=== PATIENT | male | born 1935 | race Caucasian/White ===

== ENCOUNTER → 2020-02-27 14:53 | Outpatient (BNVA) | payer MEDICARE, SELFPAY | PROVIDERS: PCP Internal Medicine; Referring Provider Internal Medicine; Visit Provider Surgery | DX: K40.90 Unilateral inguinal hernia, without obstruction or gangrene, not specified as recurrent (principal) | CPT/HCPCS: 99212 ==

== ENCOUNTER 2020-03-06 06:00 | Day surgery (SDC) | payer MEDICARE, SELFPAY ==
--- NOTE | 2020-03-05 13:58 | HO.ANESPROP2 ---
Documented by User: Beatriz Gates 03/05/20 13:59 HPI - Anesthesia Eval Consult details Narrative: 84yo M for Open Hernia Repair Inguinal with Mesh [facility] Past Medical History Medical History GERD (gastroesophageal reflux disease) Hypercholesterolemia Rheumatoid arthritis Surgical History Surgical History History of shoulder replacement (~12/2019) History of umbilical hernia repair Social History Social History Alcohol intake: current Alcohol intake frequency: holidays/special occasions only Smoking Status: Former smoker Second Hand Smoke Exposure: No Use of substances other than those prescribed or required for medical reasons: No Advance Directives: No Advance Directives Information Provided: No Advance Directives on File: No Meds Allergies Allergy/AdvReac Type Severity Reaction Status Date / Time No Known Allergies Allergy Verified 02/27/20 15:03 Home Medications Medication Instructions Recorded Confirmed Type B-complex with vitamin C 1 tab PO DAILY 02/27/20 02/27/20 History folic acid 1 mg tablet 1 mg PO DAILY 02/27/20 02/27/20 History methotrexate sodium 2.5 mg tablet mg PO 02/27/20 02/27/20 History omeprazole 20 mg capsule,delayed mg PO 02/27/20 02/27/20 History release pravastatin 40 mg tablet mg PO 02/27/20 02/27/20 History tamsulosin 0.4 mg capsule mg PO 02/27/20 02/27/20 History tramadol 50 mg tablet mg PO 02/27/20 02/27/20 History trazodone 50 mg tablet mg PO 02/27/20 02/27/20 History Exam Exam Date and Time: March 05, 2020 1358 Height,Weight and Vital Signs: Height 5 ft 6 in Weight 56.245 kg Assessment and Plan Assessment Anesthesia Assessment: Chart Reviewed Documented by User: Marilou Araya 03/06/20 07:16 PMFSH Past Medical History Medical History GERD (gastroesophageal reflux disease) Hypercholesterolemia Rheumatoid arthritis Surgical History Surgical History History of shoulder replacement (~12/2019) History of umbilical hernia repair Social History Social History Alcohol intake: current Alcohol intake frequency: holidays/special occasions only Smoking Status: Former smoker Second Hand Smoke Exposure: No Use of substances other than those prescribed or required for medical reasons: No Advance Directives: No Advance Directives Information Provided: No Advance Directives on File: No Meds Allergies Allergy/AdvReac Type Severity Reaction Status Date / Time No Known Allergies Allergy Verified 02/27/20 15:03 Home Medications Medication Instructions Recorded Confirmed Type B-complex with vitamin C 1 tab PO DAILY 02/27/20 02/27/20 History folic acid 1 mg tablet 1 mg PO DAILY 02/27/20 02/27/20 History methotrexate sodium 2.5 mg tablet mg PO 02/27/20 02/27/20 History omeprazole 20 mg capsule,delayed mg PO 02/27/20 02/27/20 History release pravastatin 40 mg tablet mg PO 02/27/20 02/27/20 History tamsulosin 0.4 mg capsule mg PO 02/27/20 02/27/20 History tramadol 50 mg tablet mg PO 02/27/20 02/27/20 History trazodone 50 mg tablet mg PO 02/27/20 02/27/20 History Exam Airway Mallampati Class: II TM Dist: >3cm Neck ROM: Full Denture: Upper and Lower Heart: RRR Lungs: CTA BL Assessment and Plan Assessment Anesthesia Assessment: Anesthesia Plan Discussed and Chart Reviewed Final Anesthetic Review NPO: Yes ASA Class: III Final Preanesthetic Review: No Changes in Pt Med Stat and Consent Obtained/Reviewed Patient Risk: Intermediate Procedure Risk: Intermediate Anesthetic Plan Anesthetic Plan: MAC: Disposition: Standard PACU
[2020-03-06 06:16] VITALS: BP 157/68; PULSE 68; RESP 18; TEMP 36.6; O2SAT 96
--- NOTE | 2020-03-06 07:04 | MHC.SHP ---
Pre-Procedural Eval Section A The patient is an INPATIENT: No Changes since office visit: Yes Patient answered all questions; No Cold of Flu in the past 2 weeks, No New Medical Problems and No Changes in Medication Section B Chief Complaint: Right Inguinal Hernia Allergies: Allergies Allergy/AdvReac Type Severity Reaction Status Date / Time No Known Allergies Allergy Verified 02/27/20 15:03 Plan Diagnosis/Plan: Unchanged Patient has been examined and remains a candidate for the planned procedure
[2020-03-06] MEDS: Lactated Ringers 1,000 ML 100 ML IVCONT (07:17)
[2020-03-06] MEDS: ceFAZolin Sodium/Dextrose,Iso 2 GM/50 ML PIGGYBACK IV (07:17)
[2020-03-06 08:58] VITALS: BP 149/65; PULSE 66; RESP 16; TEMP 36.8; O2SAT 98
[2020-03-06] MEDS: Ketorolac Tromethamine 15 MG/ML VIAL IVPUSH (09:12)
[2020-03-06] MEDS: Acetaminophen 325 MG TABLET 650 MG PO (09:12)
[2020-03-06 09:13] VITALS: BP 159/70; PULSE 62; RESP 16; O2SAT 99
--- NOTE | 2020-03-06 09:14 | W.PM.OPN ---
Operative Note Operative Note Narrative: Preoperative diagnosis: Right inguinal hernia Postoperative diagnosis: Same, direct Procedure: Repair of right inguinal hernia using a medium PHS mesh Anesthesia: Monitored anesthesia care with local Specimen: Hernia sac Estimated blood loss: Less than 10 cc Urine output: None Immediate complications: None Indications: This is an 84-year-old gentleman with a several year history of a right inguinal hernia. He has experienced increasing discomfort associated with it and has elected to proceed with repair. Procedure in detail with the patient in the supine position after obtaining adequate sedation, the lower abdominal wall and inguinal areas were prepped with ChloraPrep and were draped sterilely. Time-out procedure was performed. 2 g of cefazolin were infused for antibiotic prophylaxis. The incisional area was infiltrated with local anesthetic and additional anesthetic infiltration was carried out as needed throughout the procedure. An approximately 6 cm incision was made in the right inguinal area paralleling the groin crease extending to approximately the level of the external ring. The incision was deepened to the level of the external oblique fascia. The fascia was then split in line with its fibers through the external ring. Adherent soft tissue beneath the level of the external oblique fascia was carefully dissected free and we letter retractor was positioned. A nerve was identified running medial to the internal ring and was left in position. The cord structures were encircled at the level of the pubic tubercle and a [place] drain was placed around them. There was an obvious direct hernia defect. Dissection was initiated along the anteromedial aspect of the cord structures just beyond the level of the internal ring. Careful dissection revealed no evidence of an indirect hernia. The neck of the direct hernia defect was then encircled at the level of the floor of the inguinal canal. The sac was then opened and partially excised. The preperitoneal space was gently opened and the wound was copiously irrigated with saline solution and was inspected for bleeding. No bleeding was seen. A medium PHS was then employed. The circular portion of the mesh was placed into the preperitoneal space and was open to lie flat against the posterior aspect of the abdominal wall. The floor of the inguinal canal was then reinforced with a running suture beginning at the level of the pubic tubercle and continuing between the shelving edge of Poupart's ligament and the conjoined tendon up to the level of the it mesh where it transited the floor of the canal. The suture was tied at that level. The more superficial portion of the mesh was then trimmed to lie in the floor of the inguinal canal and to overlap the inferior aspect of Poupart's ligament. It extended beyond the pubic tubercle by approximately a cm and half. It was sutured in place to the pubic tubercle and then to the shelving edge of Poupart's ligament and to the conjoined tendon taking care to ensure that there was no traction on the nerve trunk. Cephalad, it was split to allow for egress of the cord structures. Some of the mesh around the cord was trimmed to avoid any tension and the mesh was reattached to itself above the level of the internal ring. The cephalad portion of the mesh was placed beneath the intact portion of the external oblique fascia. The wound was again copiously irrigated with saline solution and was inspected for bleeding. The mesh was also inspected to ensure that it was well secured. Following this, the external oblique fascia was reapproximated using a running suture of 2 0 Polysorb. Subcutaneous tissues were irrigated with saline solution. A small amount of bleeding was identified and controlled with the electrosurgical pencil. Subcutaneous tissues were then closed with interrupted sutures of 3 0 Polysorb and skin was closed with a running subcuticular suture for O Polysorb. Steri-Strips and dry sterile dressings were applied. He tolerated the procedure well and was transported to the recovery room in stable condition. There were no immediate complications.
[2020-03-06 09:27] VITALS: BP 162/67; PULSE 66; RESP 18; O2SAT 99
== END 2020-03-06 10:30 | disposition home or self-care (01) ==
PROVIDERS: PCP Internal Medicine; Visit Provider Surgery
DX: K40.90 Unilateral inguinal hernia, without obstruction or gangrene, not specified as recurrent (principal); K21.9 Gastro-esophageal reflux disease without esophagitis; M06.9 Rheumatoid arthritis, unspecified; Z96.619 Presence of unspecified artificial shoulder joint; Z79.899 Other long term (current) drug therapy; Z87.891 Personal history of nicotine dependence
CPT/HCPCS: 49505; 88302; C1781; J0690; J1885; J2250; J3010

== ENCOUNTER → 2020-03-14 09:26 | Outpatient (BNVA) | payer MEDICARE, SELFPAY | PROVIDERS: PCP Internal Medicine; Referring Provider Internal Medicine; Visit Provider Surgery | DX: Z48.815 Encounter for surgical aftercare following surgery on the digestive system (principal) | CPT/HCPCS: 99212 ==

== ENCOUNTER → 2020-04-09 08:41 | Outpatient (BNVA) | payer MEDICARE, SELFPAY | PROVIDERS: PCP Internal Medicine; Visit Provider Surgery | DX: K40.90 Unilateral inguinal hernia, without obstruction or gangrene, not specified as recurrent (principal) | CPT/HCPCS: 99212 ==

== ENCOUNTER 2021-06-13 09:00 | Outpatient (RCR) | payer MEDICARE, SELFPAY | END 2021-06-13 09:54 | disposition home or self-care (01) | LOC: HO.PTCHIC 09:00 | PROVIDERS: PCP Internal Medicine; Visit Provider Internal Medicine | DX: M54.2 Cervicalgia (principal) | CPT/HCPCS: 97110; 97140; 97162 ==

== ENCOUNTER 2022-12-03 13:13 | Outpatient (AMB) | payer MEDICARE, SELFPAY ==
--- NOTE | 2022-12-03 13:18 | MHC.OFFWIV ---
Intake Vital Signs 12/03/22 13:19 BP 102/60 Blood Pressure Location Lt brachial Position Sitting Pulse 84 Pulse Source Pulse Oximeter Temp 96.6 F L Temp Source Temporal Artery Scan Pulse Oximetry (%) 97 Oxygen Delivery Method Room Air Intake Visit Reasons: EST/right elbow pain Intake Note: Pt is here c/o right elbow pain for the last six days. Pt states no injuries or falls. Patient Tobacco Use Status: Former Tobacco user Allergies No Known Allergies Allergy (Verified 12/03/22 13:19) Do you need a note to return to daycare/school/sports/work: No HPI HPI Comments History of Present Illness Details 79-year-old male that presents for elbow pain. Patient states that he developed elbow pain on the right side tender to the touch the inside of his elbow is pain when he moves his arm. Denies any fevers chills for swelling. [facility] Medical History GERD (gastroesophageal reflux disease) Hypercholesterolemia Rheumatoid arthritis Surgical History History of shoulder replacement (~12/2019) History of umbilical hernia repair Social History Alcohol intake: current Alcohol intake frequency: holidays/special occasions only Patient Tobacco Use Status: Former Tobacco user Second Hand Smoke Exposure: No Review of Systems Const All systems reviewed & are unremarkable except as noted in HPI and below Reports as per HPI Musc Details: Right elbow pain. Physical Exam Vital Signs: Last Vital Signs Temp 96.6 F L 12/03/22 13:19 Pulse 84 12/03/22 13:19 BP 102/60 12/03/22 13:19 Pulse Ox 97 12/03/22 13:19 Oxygen Delivery Method Room Air 12/03/22 13:19 Const General: cooperative, healthy appearing and alert Extrem Other: Right elbow without swelling. No erythema or warmth over the joint. Pain with supination tenderness to palpation over the medial epicondyle. Assessment & Plan Assessment & Plan (1) Medial epicondylitis: Code(s): M77.00 - Medial epicondylitis, unspecified elbow Plan VSS. On exam patient presents alert oriented no acute distress. Exam is notable for tenderness to palpation over the medial epicondyle pain with supination no swelling no erythema or warmth to the joint. X-rays performed show no acute fracture or effusion on my interpretation. Patient likely suffering from medial epicondylitis. Recommend symptomatic treatment NSAIDs rest ice bracing. Discharge instructions, follow up and treatment are discussed with patient in my usual fashion. Alternatives in treatment are also discussed. The patient will return for worsening symptoms or as needed. Advised that any labs/imaging ordered will be followed up on and contact made if further treatment needed. Counseled that patient's condition may require further evaluation and/or treatment. Symptoms of concern for worsening disorder discussed in detail in my customary manner. Patient does verbalize understanding of the plan, there are no apparent barriers to communication. The patient is given the opportunity to ask questions and have them answered to his/her satisfaction Orders: Orders XR elbow RT min 3V Today M25.529 - Pain in unspecified elbow Coding Level of Care Code Est Pt Level 3 (24245) Diagnoses Medial epicondylitis M77.00
[2022-12-03 13:19] VITALS: BP 102/60; PULSE 84; TEMP 35.9; O2SAT 97
== END 2022-12-03 14:09 | disposition home or self-care (01) ==
PROVIDERS: PCP Internal Medicine; Visit Provider Physician Assistant
DX: M77.00 Medial epicondylitis, unspecified elbow (principal)
CPT/HCPCS: 99213

== ENCOUNTER 2022-12-03 13:27 | Outpatient (REF) | payer MEDICARE, SELFPAY ==
--- NOTE | ~2022-12-03 | XR_ITS ---
EXAMINATION: XR ELBOW, RIGHT CLINICAL INFORMATION: Pain right elbow COMPARISON: None available. TECHNIQUE: AP, lateral, and oblique views of the right elbow. FINDINGS: The joint space is maintained normal. No visible acute fractures dislocation seen. There are small calcification seen lateral epicondyle likely calcific epicondylitis or old injury. No abnormal joint effusion seen. XR/XR elbow RT min 3V IMPRESSION: 1. No acute fracture or dislocation. 2. Small calcification seen lateral epicondyle likely calcific epicondylitis or old injury.
== END 2022-12-03 13:28 | disposition home or self-care (01) ==
LOC: HO.HMGCX 13:27
PROVIDERS: Visit Provider Physician Assistant
DX: M25.521 Pain in right elbow (principal)
CPT/HCPCS: 73080

== ENCOUNTER 2023-08-24 08:56 | Outpatient (AMB) | payer MEDICARE, SELFPAY ==
[2023-08-24 09:11] VITALS: BP 181/76; PULSE 74
--- NOTE | 2023-08-24 09:11 | MHC.OFFVIS ---
Vital Signs 08/24/23 09:11 Weight 123 lb BP 181/76 H Blood Pressure Location Rt brachial Position Sitting Pulse 74 Intake Visit Reasons: RUQ pain ? hernia Intake Note: Formerly Dr. Mabry's patient. Patient scheduled for what he thinks is a new hernia. Patient c/o: RUQ pain. 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 He has had right upper quadrant abdominal wall discomfort for many years time. He has also had some discomfort last several weeks over his umbilical hernia site/incision with was repaired many years ago . Patient is otherwise tolerating his diet and having regular bowel habits. He has no GI other issues or complaints [facility] Medical History GERD (gastroesophageal reflux disease) Hypercholesterolemia Rheumatoid arthritis Surgical History History of umbilical hernia repair History of shoulder replacement (~12/2019) Social History Alcohol intake: current Alcohol intake frequency: holidays/special occasions only Patient Tobacco Use Status: Former Tobacco user Second Hand Smoke Exposure: No Physical Exam Vital Signs: Last Vital Signs Pulse 74 08/24/23 09:11 BP 181/76 H 08/24/23 09:11 Const Other: Thin, very cordial male looking younger than his chronologic age GI Other: Patient was examined both supine and standing with Valsalva. Thin scaphoid abdomen. No evidence of any umbilical or groin hernias. Right upper quadrant abdominal wall, site of patient's symptoms demonstrates no obvious hernia or defect. Patient has a small rectus diastasis Assessment & Plan Assessment & Plan (1) Abdominal wall pain in right upper quadrant: Code(s): R10.11 - Right upper quadrant pain Category: Surgical Plan The present time, no obvious pathology was demonstrated. The current plan is see the patient in few weeks' time and if his symptoms progress or worsen during that interim, further interventions can be undertaken and he is to call the office but will otherwise see me as directed. All questions answered.
== END 2023-08-24 09:21 | disposition home or self-care (01) ==
PROVIDERS: PCP Internal Medicine; Visit Provider Surgery
DX: R10.11 Right upper quadrant pain (principal)
CPT/HCPCS: 99204

== ENCOUNTER → 2023-08-24 08:56 | Outpatient (BNVA) | payer MEDICARE, SELFPAY | PROVIDERS: PCP Internal Medicine; Visit Provider Surgery | DX: R10.11 Right upper quadrant pain (principal) | CPT/HCPCS: 99202 ==

== ENCOUNTER 2023-10-05 08:42 | Outpatient (AMB) | payer MEDICARE, SELFPAY ==
[2023-10-05 08:46] VITALS: BP 160/71; PULSE 83
--- NOTE | 2023-10-05 08:46 | MHC.OFFVIS ---
Vital Signs 10/05/23 08:46 Weight 121 lb BP 160/71 H Blood Pressure Location Rt brachial Position Sitting Pulse 83 Intake Visit Reasons: follow up RUQ pain ? hernia Intake Note: Patient here to f/u RUQ pain. Reports pain episode on Wednesday. Patient c/o: anxious to get answers. Experiencing severe pain and hernia bulges out. 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 He has had persistence of this and the silver the weekend he had a large bulge in the right upper quadrant of the abdominal wall. [facility] Medical History GERD (gastroesophageal reflux disease) Hypercholesterolemia Rheumatoid arthritis Surgical History History of umbilical hernia repair History of shoulder replacement (~12/2019) Social History Alcohol intake: current Alcohol intake frequency: holidays/special occasions only Patient Tobacco Use Status: Former Tobacco user Second Hand Smoke Exposure: No Physical Exam Vital Signs: Last Vital Signs Pulse 83 10/05/23 08:46 BP 160/71 H 10/05/23 08:46 GI Other: Abdominal exam; patient was examined both supine and standing with Valsalva. Very thin scaphoid abdomen. Had minimal soft and benign. No obvious abdominal hernia was demonstrated. Patient was very thin and if there were hernia a would typically be quite obvious. Assessment & Plan Assessment & Plan (1) Abdominal wall pain in right upper quadrant: Code(s): R10.11 - Right upper quadrant pain Category: Surgical Plan Because of persistence of symptoms and minimal improvement, current plan is to arrange for a CT scan of the abdomen pelvis to look for an occult hernia and direct further therapy based on these results. Her patient will see me after the study or p.r.n.. All questions answered. Orders: Orders CT abdomen pelvis w IV con Today R10.11 - Right upper quadrant pain Coding Level of Care Code Est Pt Level 4 (34150) Diagnoses Abdominal wall pain in right upper quadrant R10.11
== END 2023-10-05 09:09 | disposition home or self-care (01) ==
PROVIDERS: PCP Internal Medicine; Visit Provider Surgery
DX: R10.11 Right upper quadrant pain (principal)
CPT/HCPCS: 99213

== ENCOUNTER → 2023-10-05 08:42 | Outpatient (BNVA) | payer MEDICARE, SELFPAY | PROVIDERS: PCP Internal Medicine; Visit Provider Surgery | DX: R10.11 Right upper quadrant pain (principal) | CPT/HCPCS: 99212 ==

== ENCOUNTER 2023-10-28 10:20 | Outpatient (REF) | payer MEDICARE, SELFPAY ==
[2023-10-28 11:12] LABS: Blood Urea Nitrogen 15 mg/dL (9-16); Estimated Glomerular Filt Rate > 60
== END 2023-10-28 10:21 | disposition home or self-care (01) ==
LOC: HO.LAB 10:20
PROVIDERS: PCP Internal Medicine; Visit Provider Surgery
DX: R10.11 Right upper quadrant pain (principal)
CPT/HCPCS: 36415; 82565; 84520

== ENCOUNTER 2023-11-02 07:50 | Outpatient (REF) | payer MEDICARE, SELFPAY ==
--- NOTE | ~2023-11-02 | CT_ITS ---
EXAMINATION: CT ABDOMEN AND PELVIS WITH CONTRAST CLINICAL INFORMATION: Right upper quadrant abdominal pain. COMPARISON: None available. TECHNIQUE: Multidetector volumetric images were obtained from the superior aspect of the liver through the pubic symphysis following administration 85 mL of Omnipaque 350 intravenous contrast. Sagittal and coronal reformatted images were obtained on the technologist's workstation. Oral contrast: Yes This CT examination was performed using dose optimization techniques as appropriate, variously including the following: *Automated exposure control *Adjustment of mA and/or kV according to patient size (this includes techniques or standardized protocols for targeted exams where dose is matched to indication/reason for exam; i.e. extremities or head) *Use of iterative reconstruction technique DLP: 578 mGy-cm FINDINGS: LUNG BASES: The visualized lung bases are unremarkable. LIVER, GALLBLADDER, AND BILIARY TREE: Simple cyst in the right hepatic lobe. No biliary ductal dilatation. No suspicious liver mass. The gallbladder is unremarkable with no evidence of radiopaque gallstones, gallbladder wall thickening, or obvious pericholecystic inflammatory changes. PANCREAS: No discrete pancreatic mass. No pancreatic ductal dilatation. SPLEEN: Normal size. Small splenule. ADRENAL GLANDS: No adrenal mass. KIDNEYS AND URETERS: No nephrolithiasis or hydronephrosis. BLADDER: Large capacity bladder with trabeculated wall and diverticular changes. No discrete bladder mass. GASTROINTESTINAL TRACT: Small and large bowel are normal in caliber. Severe colonic diverticulosis, most prominent in the sigmoid, without acute diverticulitis. ABDOMINAL WALL: No significant hernia is appreciated. LYMPH NODES: No lymphadenopathy. VASCULAR: No aortic aneurysm. Moderate aortoiliac atherosclerotic disease. The celiac, superior mesenteric, and inferior mesenteric arteries appear patent. The renal arteries appear patent. PELVIC VISCERA: The prostate is enlarged measuring 4.5 x 3.1 x 3.7 cm, approximately 26 mL. OSSEOUS STRUCTURES: Degenerative changes in the spine and hips. No suspicious osseous lesions. CT/CT abdomen pelvis w IV con IMPRESSION: No explanation for right upper quadrant abdominal pain.
[2023-11-02] MEDS: iohexoL 350 MG/ML 100 ML INFUS..BTL IV (10:36)
[2023-11-02] MEDS: Barium Sulfate Oral (Berry) 450 ML ORAL.SUSP PO ×2 (10:37→10:38)
== END 2023-11-02 07:51 | disposition home or self-care (01) ==
LOC: HO.CT 07:50
PROVIDERS: PCP Internal Medicine; Visit Provider Surgery
DX: R10.11 Right upper quadrant pain (principal)
CPT/HCPCS: 74177; Q9967

== ENCOUNTER 2023-11-15 09:58 | Outpatient (AMB) | payer MEDICARE, SELFPAY ==
--- NOTE | 2023-11-15 10:11 | MHC.OFFVIS ---
Vital Signs 11/15/23 10:21 Weight 120 lb BP 150/65 H Blood Pressure Location Rt brachial Position Sitting Pulse 65 Intake Visit Reasons: follow up after CT scan Intake Note: Patient here to discuss Abd/pelvis CT scan results. Patient c/o: RUQ discomfort. 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 He has had improvement of his right subcostal symptoms. He is tolerating a diet. Having regular bowel habits. He has no other GI issues or complaints. CT scan unofficially demonstrated no obvious hernia but official reading is still pending. [facility] Medical History GERD (gastroesophageal reflux disease) Hypercholesterolemia Rheumatoid arthritis Surgical History History of umbilical hernia repair History of shoulder replacement (~12/2019) Social History Alcohol intake: current Alcohol intake frequency: holidays/special occasions only Patient Tobacco Use Status: Former Tobacco user Second Hand Smoke Exposure: No Physical Exam Vital Signs: Last Vital Signs Pulse 65 11/15/23 10:21 BP 150/65 H 11/15/23 10:21 GI Other: patient was examined standing with Valsalva. Abdomen is scaphoid, soft, benign. No evidence of any abdominal hernias. Assessment & Plan Assessment & Plan (1) Abdominal wall pain in right upper quadrant: Code(s): R10.11 - Right upper quadrant pain Category: Surgical Plan At present, no acute surgical issues. Should the CT scan reading show differently, patient will be contacted. Patient will otherwise follow-up p.r.n.. All questions answered. Coding Level of Care Code Est Pt Level 4 (79473) Diagnoses Abdominal wall pain in right upper quadrant R10.11
[2023-11-15 10:21] VITALS: BP 150/65; PULSE 65
== END 2023-11-15 10:48 | disposition home or self-care (01) ==
PROVIDERS: PCP Internal Medicine; Visit Provider Surgery
DX: R10.11 Right upper quadrant pain (principal)
CPT/HCPCS: 99213

== ENCOUNTER → 2023-11-15 09:58 | Outpatient (BNVA) | payer MEDICARE, SELFPAY | PROVIDERS: PCP Internal Medicine; Visit Provider Surgery | DX: R10.11 Right upper quadrant pain (principal) | CPT/HCPCS: 99212 ==

== ENCOUNTER 2023-12-09 09:00 | Outpatient (RCR) | payer MEDICARE, SELFPAY | END 2023-12-09 15:02 | disposition home or self-care (01) | LOC: HO.PTCHIC 09:00 | PROVIDERS: PCP Internal Medicine; Visit Provider Physician Assistant Medical | DX: M54.2 Cervicalgia (principal); M25.512 Pain in left shoulder | CPT/HCPCS: 97014; 97110; 97140; 97162 ==